=== PATIENT | male | born 1945 | race Caucasian/White ===

== ENCOUNTER 2016-06-25 13:10 | Emergency (ER) | payer OTHER ==
[~2016-06-25] VITALS: Ht 170.2 cm; Wt 65.8 kg
[~2016-06-25 13:10] MED LIST: ALLER-EASE180 MG PO; ALLOPURINOL 10100 M2 PO; ASPIR 8181 M1 PO; ATORVASTATIN CA40 MG PO; CALCITRIOL0.5 MCG PO; DITROPAN XL10 M1 PO; FLOMAX0.4 MG PO; LAMICTAL150 MG PO; LAMOTRIGINE300 MG PO; LANSOPRAZOLE30 MG PO; MACUTAB; MIRALAX17 GM PO; NASONEX17 GM NASAL; PHENOBARBITAL32.4 M2 PO
[2016-06-25 14:12] LABS: HEMATOCRIT 32.2 % (42.0-52.0); MANUAL DIFF YES; MCH 32.9 pg (26.0-34.0); MCHC 34.1 g/dL (28.0-37.0); MCV 96.5 fL (80.0-100.0); PLATELET COUNT 267 thou/uL (150-400); RBC 3.33 mil/uL (4.50-6.00); RDW 15.4 % (10.5-14.5); WBC 8.5 thou/uL (4.0-11.0)
[2016-06-25 14:20] LABS: ANION GAP 9 mmol/L (7-16); BUN 30 mg/dL (7-18); CALCIUM 10.2 mg/dL (8.5-10.1); CHLORIDE 99 mmol/L (98-107); CO2 30 mmol/L (21-32); CREATININE 7.2 mg/dL (0.7-1.3); GLUCOSE 107 mg/dL (74-106); POTASSIUM 3.7 mmol/L (3.5-5.1); SODIUM 138 mmol/L (136-145)
[2016-06-25 14:25] LABS: ALBUMIN 2.3 g/dL (3.4-5.0); ALKALINE PHOSPHATASE 162 U/L (46-116); DIRECT BILIRUBIN < 0.1 mg/dL (<0.1-0.3); SGOT 30 U/L (15-37); SGPT 36 U/L (30-65); TOTAL BILIRUBIN 0.3 mg/dL (<0.1-1.0); TOTAL PROTEIN 6.2 g/dL (6.4-8.2)
[2016-06-25 14:26] LABS: CLARITY SLIGHTLY CLOUDY; COLOR YELLOW; TOTAL VOLUME <1 mL
[2016-06-25 14:32] LABS: BF NUCLEATED CELLS 559; BF RBC 209
[2016-06-25 14:34] LABS: MANUAL DIFF YES
[2016-06-25 14:47] LABS: ABSOLUTE NEUTROPHILS 7.4 thou/uL (1.4-8.2); TOTAL CELL COUNT 100
[2016-06-25 14:52] LABS: URINE BILIRUBIN NEGATIVE (Negative); URINE BLOOD 1+ (Negative); URINE COLOR YELLOW; URINE GLUCOSE-RANDOM* NEGATIVE (Negative); URINE KETONES NEGATIVE (Negative); URINE NITRITE NEGATIVE (Negative); URINE PROTEIN (DIPSTICK) 2+ (Negative); URINE SPECIFIC GRAVITY <= 1.005 (1.003-1.035); URINE UROBILINOGEN 0.2 E.U./dl (0.2-1.0)
[2016-06-25 14:55] LABS: BACTERIA None Seen /HPF (None Seen); CASTS None Seen /LPF (None Seen); CRYSTALS None Seen /LPF (None Seen); SQUAMOUS None Seen /LPF (0-3); URINE RBC None Seen /HPF (0-2); URINE WBC 0-5 Rare /HPF (0-5)
[2016-06-25 15:15] LABS: BF MACROPHAGE 1; BF NEUTROPHILS 59
[2016-06-25] MEDS ORDERED: PHENOBARBITAL16.2 MG PO (15:38)
[2016-06-25] MEDS ORDERED: KEFLEX500 MG PO (15:38)
[2016-06-25] MEDS ORDERED: CARISOPRODOL 3350 MG PO (15:40)
[2016-06-25] MEDS ORDERED: NEPHROCAPS SOFT1 CAP PO (15:40)
[2016-06-25] MEDS ORDERED: RENVELA800 MG PO (15:40)
== END 2016-06-25 15:49 | disposition home or self-care (01) ==
LOC: ER 13:10
PROVIDERS: Emergency Medicine
DX: K65.9 Peritonitis, unspecified (principal); R10.84 Generalized abdominal pain; M10.9 Gout, unspecified; K21.9 Gastro-esophageal reflux disease without esophagitis; E78.00 Pure hypercholesterolemia, unspecified; H35.30 Unspecified macular degeneration; G40.909 Epilepsy, unspecified, not intractable, without status epilepticus; Z90.89 Acquired absence of other organs; Z99.2 Dependence on renal dialysis; Z87.891 Personal history of nicotine dependence

== ENCOUNTER 2016-08-23 10:36 | Inpatient (IN) | payer OTHER ==
[~2016-08-23] VITALS: Ht 170.2 cm; Wt 69.9 kg
--- NOTE | ~2016-08-23 | S ---
[facility] [place] [address] SURGICAL PATH RPT PROCEDURE Name: DIPAK LAMBERT Room #: 314-P [facility] IN M.R.#: [id number] Admission: 08/23/16 Date of : 43 Discharge: Report #: [id number] Path Case #: [id number] PATHOLOGY REPORT COLLECTION DATE: 08/27/2016 RECEIVED DATE: 08/28/2016 SUBMITTING PHYS: Dr. Everett Gold OTHER PHYS: Dr. Jaison Vicente SPECIMEN(S) RECEIVED: A.External peritoneal dialysis catheter * * * * * * * * * * * * FINAL DIAGNOSIS: A. External peritoneal dialysis catheter, removal: - Tubing material, compatible with a dialysis catheter (Gross exam only) PATHOLOGIST: Emeli Aceves M.D. REPORT ELECTRONICALLY SIGNED BY: Emeli Aceves M.D. DATE/TIME: 08/31/2016 16:06 * * * * * * * * * * * * GROSS PATHOLOGY: The specimen is received in formalin labeled "Dipak Lambert external peritoneal dialysis catheter". Received is a segment of blue and white plastic measuring 7.8 x 1.7 x 1.7 cm with attached clear tubing measuring 16.1 cm in length by 0.6 and meters in diameter. At the end of the tubing there is a circular metallic aspect measuring 1.7 x 1.0 cm with additional clear tubing measuring 17.2 cm in length by 0.5 cm in diameter. A gross photograph is taken. Sections are not submitted. (CAA; 08/29/2016) CLINICAL HISTORY: Infected PD cath INITIAL CPT CODE(S): 87636 Professional services performed by [facility] at [facility] [address] , [place] [address] Technical services performed by [facility] at [address] [place] [address] [address] [place] [address] SURGICAL PATH RPT PROCEDURE Name: DIPAK LAMBERT Room #: 314-P [facility] IN [facility].#: [id number] Admission: 08/23/16 Date of : 43 Discharge: Report #: [id number] Path Case #: [id number] [place] [address]. [facility] [address] [address] PHONE: [phone] DIRECTOR: Joselito Graff M.D. * * * END OF REPORT * * *
--- NOTE | ~2016-08-23 | EKG ---
[address] [address] ELECTROCARDIOGRAM REPORT Name: JOY SHEETS Room #: 308-P ADM IN M.R.#: [id number] Admission: 08/23/16 Attend Phys: Jaison Torres MD Discharge: Date of : 43 Report #: [id number] THIS REPORT FOR: //name// [facility] ED Test Date: 2016-08-23 Test Time: 11:07:54 Pat Name: JOY SHEETS Department: Room: 308 Gender: M [employer] Sales Person: ANNE-MARIE : 1945 Requested By: Gene Oro Order Number: [id number] MD: Ron Rome Measurements Intervals [place] Rate: 70 P: 48 CO: 188 QRS: 36 QRSD: 132 T: 4 QT: 414 QTc: 447 Interpretive Statements Sinus rhythm Nonspecific intraventricular conduction delay Inferior infarct, old No previous ECG available for comparison Electronically Signed On 08-23-2016 22:29:19 CDT by Ron Rome [email or web address] <ELECTRONICALLY SIGNED> By: Ron Rome MD 08/23/16 2229 D: 07/1106 06 Ron Rome MD /CARLA
--- NOTE | ~2016-08-23 | O ---
[facility] [place] [address] OPERATIVE REPORT Name: JOY SHEETS Room #: 314-P [facility] IN ..#: [id number] Admission: 08/23/16 Attend Phys: Jaison Torres MD Discharge: Date of : 43 Report #: [id number] THIS REPORT FOR: //name// CC: Brent Torres DATE OF SERVICE: 08/27/2016 PREOPERATIVE DIAGNOSIS: Infected peritoneal dialysis catheter. POSTOPERATIVE DIAGNOSIS: Infected peritoneal dialysis catheter, pending culture results. SURGEON: Everett Gold MD PROCEDURE: Removal of peritoneal dialysis catheter. MARKETING DATABASE ANALYST: None. ANESTHESIA: General endotracheal anesthesia and local anesthetic. ESTIMATED BLOOD LOSS: 5 mL. SPECIMENS TO PATHOLOGY: External peritoneal dialysis catheter to pathology and internal portion of peritoneal dialysis catheter to microbiology for aerobic, anaerobic, AFB, and fungal culture. COMPLICATIONS: None. INDICATION FOR PROCEDURE: The patient is a very pleasant 71-year-old gentleman with history of end-stage renal disease. He has been on peritoneal dialysis for over 1 year. He has had at least 2 episodes of peritonitis associated with peritoneal dialysis catheter. Recent cultures have shown positive result for Malissa tropicalis, therefore, general Surgery was consulted for extraction of the peritoneal dialysis catheter in the operating room setting. Detailed discussion of the risks and benefits of this procedure was held with the patient and all questions were answered to his satisfaction. Risks including bleeding, pain, infection, recurrent infection, damage to surrounding structures, and need for further procedure or treatment for unforeseen complications were all discussed. Written informed consent was obtained. DESCRIPTION OF PROCEDURE: The patient was brought to the operating room and placed in a supine position. Time-out was taken to verify the patient's identity and to plan the procedure. SCDs were in place on the lower extremities bilaterally. Preoperative antibiotics were administered. Anesthesia was induced. The patient was intubated. Abdomen was sterilely prepped and draped in standard fashion. The peritoneal dialysis catheter, [address] [address] OPERATIVE REPORT Name: JOY SHEETS Room #: 314-P [facility] IN [facility]#: [id number] Admission: 08/23/16 Attend Phys: Jaison Torres MD Discharge: Date of : 43 Report #: [id number] which was located externally at his left lower quadrant was also sterilely prepped and draped. Local anesthetic was infiltrated surrounding the peritoneal dialysis catheter site at the left lower quadrant. A 2-mm skin incision was made on either site of the catheter and exploration with a Taylor clamp was utilized to find the cuff of sclerotic tissue holding the distal portion in place. This was broken using blunt dissection and sharp dissection with Metzenbaum scissors. Once this had been freed, the catheter was clamped with a Taylor clamp near the skin. This was then transected and the external portion was passed off for pathologic analysis as external PD catheter. At the midline at the site of previous incision for placement of peritoneal dialysis catheter, local anesthetic was infiltrated at the infraumbilical site. Skin incision was created at this site and dissection was carried out with electrocautery and blunt dissection down to the fascia. The catheter was traced where it entered the peritoneal cavity. Careful dissection with a Taylor clamp and sharp dissection with Metzenbaum scissors was utilized to break the scar band holding the deep portion of the catheter in place. Once this was freed, this was extracted and passed off for analysis to be sent to microbiologic for aerobic, anaerobic, AFB, and fungal culture analysis. The fascia at the site of the previous catheter placement was then closed using a [id number] 0 PDS suture with multiple passes. Once this was well secured, this was palpated and shown to be completely intact with no obvious hernia at the site of the prior PD catheter. This wound was then irrigated with copious sterile saline at both the midline incision and the left lower quadrant site. Further local anesthetic was infiltrated into each of these sites. The external extraction site was covered with a sterile dressing and the midline incision was closed using skin haris. Sterile dressing was applied over each of the sites. At this point, the case was ended, all instrumentation had been extracted and accounted for. All counts were correct per nursing report. The patient was then awakened, extubated, and taken to the postoperative care unit in stable condition. <ELECTRONICALLY SIGNED> By: Everett Gold MD 09/01/16 1450 1723 1926 Everett Gold MD /nt
[~2016-08-23 10:36] MED LIST changes: +CARISOPRODOL 3350 MG PO; +KEFLEX500 MG PO; +METOPROLOL TART25 MG PO; +NEPHROCAPS SOFT1 CAP PO; +NITROGLYCERIN0.4 MG SUBLING; +PHENOBARBITAL16.2 MG PO; +PLAVIX 75 MG TA75 M1 PO; +RENVELA800 MG PO; +ROPINIROLE HCL0.5 MG PO
[2016-08-23 10:38] VITALS: BP 135/73
[2016-08-23 11:36] LABS: HEMATOCRIT 30.6 % (42.0-52.0); HEMOGLOBIN 10.4 gm/dL (14.0-18.0); MCH 32.9 pg (26.0-34.0); MCV 96.9 fL (80.0-100.0); PLATELET COUNT 176 thou/uL (150-400); RBC 3.16 mil/uL (4.50-6.00); RDW 16.4 % (10.5-14.5); WBC 8.2 thou/uL (4.0-11.0)
[2016-08-23 11:41] LABS: MANUAL DIFF YES
[2016-08-23 11:45] LABS: ANION GAP 10 mmol/L (7-16); BUN 39 mg/dL (7-18); CALCIUM 10.2 mg/dL (8.5-10.1); CHLORIDE 92 mmol/L (98-107); CO2 29 mmol/L (21-32); CREATININE 8.6 mg/dL (0.7-1.3); GLUCOSE 121 mg/dL (74-106); POTASSIUM 3.6 mmol/L (3.5-5.1); SODIUM 131 mmol/L (136-145)
[2016-08-23 11:52] LABS: ALBUMIN 2.5 g/dL (3.4-5.0); ALKALINE PHOSPHATASE 187 U/L (46-116); SGOT 17 U/L (15-37); SGPT 23 U/L (30-65); TOTAL BILIRUBIN 0.5 mg/dL (<0.1-1.0); TOTAL PROTEIN 6.9 g/dL (6.4-8.2); TROPONIN-I < 0.04 ng/mL (<0.04-0.07)
[2016-08-23 12:30] LABS: BF NUCLEATED CELLS 3237; BF RBC 891
[2016-08-23 12:32] LABS: CLARITY HAZY; COLOR STRAW; TOTAL VOLUME 9 mL
[2016-08-23 12:34] LABS: MANUAL DIFF YES
[2016-08-23 12:48] LABS: METAMYELOCYTES 1 %; TOTAL CELL COUNT 100
[2016-08-23 12:49] LABS: ANISOCYTOSIS 1+; POLYCHROMASIA OCCASIONAL
[2016-08-23 13:07] LABS: BF NEUTROPHILS 53
[2016-08-23 15:47] VITALS: BP 123/73
[2016-08-23 19:25] VITALS: BP 104/54
[2016-08-24 04:32] VITALS: BP 121/92
[2016-08-24 05:09] LABS: HEMOGLOBIN 10.2 gm/dL (14.0-18.0); MCH 32.8 pg (26.0-34.0); MCHC 34.1 g/dL (28.0-37.0); MCV 96.3 fL (80.0-100.0); RBC 3.12 mil/uL (4.50-6.00); RDW 16.5 % (10.5-14.5); WBC 6.6 thou/uL (4.0-11.0)
[2016-08-24 05:23] LABS: ALBUMIN 2.3 g/dL (3.4-5.0); CALCIUM 10.1 mg/dL (8.5-10.1); CREATININE 8.6 mg/dL (0.7-1.3); PHOSPHORUS 5.8 mg/dL (2.5-4.9); POTASSIUM 3.1 mmol/L (3.5-5.1)
[2016-08-24 07:52] VITALS: BP 105/69
[2016-08-24 16:36] VITALS: BP 118/52
[2016-08-24 20:00] VITALS: BP 109/53
[2016-08-25 04:00] VITALS: BP 125/49
[2016-08-25 04:34] LABS: HEMATOCRIT 31.1 % (42.0-52.0); HEMOGLOBIN 10.5 gm/dL (14.0-18.0); MCH 32.2 pg (26.0-34.0); MCHC 33.7 g/dL (28.0-37.0); MCV 95.5 fL (80.0-100.0); RBC 3.25 mil/uL (4.50-6.00); RDW 16.5 % (10.5-14.5)
[2016-08-25 04:55] LABS: ALBUMIN 2.2 g/dL (3.4-5.0); CALCIUM 10.4 mg/dL (8.5-10.1); PHOSPHORUS 5.7 mg/dL (2.5-4.9)
[2016-08-25 05:03] LABS: CREATININE 7.5 mg/dL (0.7-1.3)
[2016-08-25 05:08] LABS: POTASSIUM 2.9 mmol/L (3.5-5.1)
[2016-08-25 08:11] VITALS: BP 112/57
[2016-08-25 15:45] VITALS: BP 100/50
[2016-08-25 20:00] VITALS: BP 142/97
[2016-08-26 03:45] VITALS: BP 137/88
[2016-08-26 03:50] VITALS: BP 146/74
[2016-08-26 04:08] LABS: ALBUMIN 2.1 g/dL (3.4-5.0); CALCIUM 10.2 mg/dL (8.5-10.1); CREATININE 7.6 mg/dL (0.7-1.3); PHOSPHORUS 6.2 mg/dL (2.5-4.9); POTASSIUM 3.8 mmol/L (3.5-5.1)
[2016-08-26 04:21] LABS: HEMATOCRIT 30.8 % (42.0-52.0); HEMOGLOBIN 10.1 gm/dL (14.0-18.0); MCH 32.3 pg (26.0-34.0); MCHC 32.9 g/dL (28.0-37.0); MCV 98.1 fL (80.0-100.0); RBC 3.13 mil/uL (4.50-6.00); RDW 16.4 % (10.5-14.5); WBC 13.1 thou/uL (4.0-11.0)
[2016-08-26 07:28] VITALS: BP 98/50
[2016-08-26 16:25] VITALS: BP 93/43
[2016-08-26 20:00] VITALS: BP 107/70
[2016-08-27] VITALS (7 sets, daily range): BP systolic 86–105; BP diastolic 44–64
[2016-08-27 05:34] LABS: HEMATOCRIT 31.3 % (42.0-52.0); HEMOGLOBIN 10.4 gm/dL (14.0-18.0); MCHC 33.2 g/dL (28.0-37.0); MCV 96.6 fL (80.0-100.0); RBC 3.25 mil/uL (4.50-6.00)
[2016-08-27 05:45] LABS: PROTIME 10.2 Seconds (9.3-11.4)
[2016-08-28 04:00] VITALS: BP 97/53
[2016-08-28 05:00] LABS: ALBUMIN 1.5 g/dL (3.4-5.0); CALCIUM 10.3 mg/dL (8.5-10.1); HEMATOCRIT 25.4 % (42.0-52.0); HEMOGLOBIN 8.5 gm/dL (14.0-18.0); MCH 32.6 pg (26.0-34.0); MCHC 33.6 g/dL (28.0-37.0); MCV 97.1 fL (80.0-100.0); PHOSPHORUS 7.8 mg/dL (2.5-4.9); PLATELET COUNT 217 thou/uL (150-400); POTASSIUM 4.8 mmol/L (3.5-5.1); RBC 2.61 mil/uL (4.50-6.00); RDW 17.1 % (10.5-14.5); WBC 10.2 thou/uL (4.0-11.0)
[2016-08-28 05:01] LABS: CREATININE 9.5 mg/dL (0.7-1.3)
[2016-08-28 05:03] LABS: MAGNESIUM 2.5 mg/dL (1.8-2.4); MANUAL DIFF YES; PHOSPHORUS 7.8 mg/dL (2.5-4.9)
[2016-08-28 07:07] VITALS: BP 86/56
[2016-08-28 07:38] LABS: ABSOLUTE NEUTROPHILS 9.9 thou/uL (1.4-8.2); TOTAL CELL COUNT 100
[2016-08-28 07:39] LABS: ANISOCYTOSIS 1+
[2016-08-28 08:00] VITALS: BP 92/56
[2016-08-28 16:00] VITALS: BP 94/48
[2016-08-28 19:17] VITALS: BP 90/40
[2016-08-29 03:37] VITALS: BP 94/52
[2016-08-29 07:28] VITALS: BP 110/53
[2016-08-29 16:19] VITALS: BP 117/58
[2016-08-29 19:22] VITALS: BP 107/53
[2016-08-30 03:36] VITALS: BP 104/54
[2016-08-30 07:30] VITALS: BP 104/51
[2016-08-30 07:38] LABS: HEMATOCRIT 25.4 % (42.0-52.0); HEMOGLOBIN 8.6 gm/dL (14.0-18.0); MCH 32.5 pg (26.0-34.0); MCHC 33.7 g/dL (28.0-37.0); MCV 96.4 fL (80.0-100.0); RBC 2.64 mil/uL (4.50-6.00); RDW 16.8 % (10.5-14.5); WBC 8.1 thou/uL (4.0-11.0)
[2016-08-30 07:50] LABS: ALBUMIN 1.7 g/dL (3.4-5.0); CALCIUM 10.1 mg/dL (8.5-10.1); PHOSPHORUS 3.4 mg/dL (2.5-4.9); POTASSIUM 4.4 mmol/L (3.5-5.1)
[2016-08-30 07:56] LABS: CREATININE 7.3 mg/dL (0.7-1.3)
[2016-08-30 08:10] LABS: CHOLESTEROL 62 mg/dL (<200); HDL CHOLESTEROL 27 mg/dL (>40); LDL CHOLESTEROL 21 mg/dL (<100); TC:HDL 2.3 Ratio (Not establshd); TRIGLYCERIDE 73 mg/dL (<150); VLDL 15 mg/dL (<40)
[2016-08-30 11:49] VITALS: BP 110/49
[2016-08-30 15:40] VITALS: BP 123/55
[2016-08-30 19:39] VITALS: BP 123/57
[2016-08-30 23:08] LABS: GLYCOHEMOGLOBIN (HGB A1C) 5.1 % (4.8-5.6)
[2016-08-31 03:51] VITALS: BP 120/67
[2016-08-31 03:52] LABS: HEMATOCRIT 23.1 % (42.0-52.0); HEMOGLOBIN 7.9 gm/dL (14.0-18.0); MCHC 34.4 g/dL (28.0-37.0); MCV 95.8 fL (80.0-100.0); RBC 2.41 mil/uL (4.50-6.00); RDW 16.5 % (10.5-14.5); WBC 7.1 thou/uL (4.0-11.0)
[2016-08-31 03:56] LABS: ALBUMIN 1.6 g/dL (3.4-5.0); CALCIUM 9.6 mg/dL (8.5-10.1); PHOSPHORUS 4.9 mg/dL (2.5-4.9); POTASSIUM 4.4 mmol/L (3.5-5.1); PROTIME 9.7 Seconds (9.3-11.4)
[2016-08-31 03:57] LABS: CREATININE 8.6 mg/dL (0.7-1.3)
[2016-08-31 07:40] VITALS: BP 120/67
[2016-08-31 16:00] VITALS: BP 130/54
[2016-08-31 20:28] VITALS: BP 103/49
[2016-09-01 04:35] VITALS: BP 123/48
[2016-09-01 07:30] VITALS: BP 122/57
[2016-09-01 16:05] VITALS: BP 127/48
[2016-09-01 19:58] VITALS: BP 122/50
[2016-09-02 03:30] VITALS: BP 137/61
[2016-09-02 05:43] LABS: ALBUMIN 1.8 g/dL (3.4-5.0); CALCIUM 9.8 mg/dL (8.5-10.1); PHOSPHORUS 4.8 mg/dL (2.5-4.9); POTASSIUM 4.1 mmol/L (3.5-5.1)
[2016-09-02 05:44] LABS: CREATININE 7.1 mg/dL (0.7-1.3)
[2016-09-02 07:34] VITALS: BP 137/52
[2016-09-02] MEDS ORDERED: DIFLUCAN200 MG PO (10:04)
[2016-09-02 13:14] VITALS: BP 137/52
[2016-09-02] MEDS ORDERED: PHENOBARBITAL64.8 MG PO (14:50)
[2016-09-03 01:11] LABS: ALPHA TOCOPHEROL 9.2 mg/L (5.3-17.5)
== END 2016-09-02 16:49 | disposition home health service (06) | DRG 919 ==
LOC: ER 10:36 → EROBS 14:01 → 3N 14:01
PROVIDERS: Hospitalist; Internal Medicine Nephrology; Otolaryngology; Physician Assistant; Psychiatry & Neurology Neurology
PROC: 3E1M39Z Irrigation of Peritoneal Cavity using Dialysate, Percutaneous Approach (ICD-10-PCS; principal; 2016-08-23)
PROC: 3E1M39Z Irrigation of Peritoneal Cavity using Dialysate, Percutaneous Approach (ICD-10-PCS; 2016-08-25)
PROC: 0WPGX3Z Removal of Infusion Device from Peritoneal Cavity, External Approach (ICD-10-PCS; 2016-08-27)
PROC: B5181ZA Fluoroscopy of Superior Vena Cava using Low Osmolar Contrast, Guidance (ICD-10-PCS; 2016-08-28)
PROC: B548ZZA Ultrasonography of Superior Vena Cava, Guidance (ICD-10-PCS; 2016-08-28)
PROC: 02HV33Z Insertion of Infusion Device into Superior Vena Cava, Percutaneous Approach (ICD-10-PCS; 2016-08-28)
PROC: 5A1D60Z (ICD-10-PCS; 2016-08-28)
PROC: 02HV33Z Insertion of Infusion Device into Superior Vena Cava, Percutaneous Approach (ICD-10-PCS; 2016-08-31)
PROC: B5181ZA Fluoroscopy of Superior Vena Cava using Low Osmolar Contrast, Guidance (ICD-10-PCS; 2016-08-31)
DX: T85.71XA Infection and inflammatory reaction due to peritoneal dialysis catheter, initial encounter (principal); K65.2 Spontaneous bacterial peritonitis; B37.89 Other sites of candidiasis; Q60.0 Renal agenesis, unilateral; E87.1 Hypo-osmolality and hyponatremia; I12.0 Hypertensive chronic kidney disease with stage 5 chronic kidney disease or end stage renal disease; G45.9 Transient cerebral ischemic attack, unspecified; E78.00 Pure hypercholesterolemia, unspecified; I25.10 Atherosclerotic heart disease of native coronary artery without angina pectoris; G40.909 Epilepsy, unspecified, not intractable, without status epilepticus; E87.8 Other disorders of electrolyte and fluid balance, not elsewhere classified; H35.30 Unspecified macular degeneration; Z96.1 Presence of intraocular lens; Y83.8 Other surgical procedures as the cause of abnormal reaction of the patient, or of later complication, without mention of misadventure at the time of the procedure; I95.3 Hypotension of hemodialysis; E83.52 Hypercalcemia; D86.3 Sarcoidosis of skin; D86.0 Sarcoidosis of lung; H54.41 Blindness, right eye, normal vision left eye; I25.2 Old myocardial infarction; Z98.42 Cataract extraction status, left eye; Z98.41 Cataract extraction status, right eye; Z95.1 Presence of aortocoronary bypass graft; Z95.5 Presence of coronary angioplasty implant and graft; Z87.891 Personal history of nicotine dependence; Y92.89 Other specified places as the place of occurrence of the external cause; Z79.02 Long term (current) use of antithrombotics/antiplatelets; Z79.82 Long term (current) use of aspirin; Z79.899 Other long term (current) drug therapy
CPT/HCPCS: 10094; 32100; 33000; 50010; 50101; 50386; 50403; 51412; 56524; 56525; 56526; 62110; 62900; 70005